=== PATIENT | female | born 1980 | race Caucasian/White ===

== ENCOUNTER → 2019-05-26 | Outpatient (CLI) | payer OTHER ==
--- NOTE | 2019-05-26 17:26 | REPMRS ---
Patient History The patient states she has not had a clinical breast exam in over a year. Patient is nulliparous. Family history of colorectal cancer at age 40 in mother. Taking hormonal contraceptives for 15 years. Digital Mammo Screening Bilat: May 26, 2019 - Exam #: [id number] Bilateral CC and MLO view(s) were taken. Technologist: Najma Kern Technologist FINDINGS: The breast tissue is heterogeneously dense. This may lower the sensitivity of mammography. There is no evidence of dominant mass, architectural distortion, or grouped microcalcification typical of malignancy. Assessment: BI-RADS/ACR category 1 mammogram. Negative Mammogram. Recommendation Routine screening mammogram of both breasts in 1 year (for women over age 40). This patient's Lifetime Breast Cancer RIsk is estimated at 13.8 %. This mammogram was interpreted with the aid of an FDA-approved computer-aided dectection system. Electronically Signed By: Elian Alexandre MD 05/26/19 [id number]
== END ==
LOC: M RAD 13:55
PROVIDERS: ATTEND Student in an Organized Health Care Education/Training Program
DX: Z12.31 Encounter for screening mammogram for malignant neoplasm of breast (principal)

== ENCOUNTER → 2020-02-02 | Outpatient (REF) | LOC: M LAB 09:00 | PROVIDERS: ATTEND Nurse Practitioner Adult Health | DX: Z00.00 Encounter for general adult medical examination without abnormal findings (principal) ==